=== PATIENT | female | born 1985 | race Caucasian/White ===

== ENCOUNTER 2023-04-07 12:08 | Emergency (ER) | payer BC, SELFPAY ==
[2023-04-07 12:20] VITALS: BP 101/72; PULSE 79; RESP 16; TEMP 35.8; O2SAT 98
--- NOTE | 2023-04-07 12:58 | ED.GENADULT ---
HPI - General Adult General Chief complaint: Upper Respiratory Infection Stated complaint: Exposure to Flu, No Symptoms Time Seen by Provider: 04/07/23 12:58 Source: patient, RN notes reviewed and old records reviewed Mode of arrival: ambulatory Limitations: no limitations History of Present Illness HPI narrative: 38-year-old female presents to the [facility] with complaints of exposure to influenza. Exposure was on the last several days to influenza A. Patient states her and 2 of her children tested positive. Patient is wanting Tamiflu to prevent her from getting the flu. Explained to patient that Tamiflu just reduces symptoms of Tamiflu by a couple of hours. It does not prevent you from getting the flu. Patient currently Patient denies any symptoms. No sore throat, fevers, chest pain, abdominal pain. No sinus congestion. Denies any body aches Related Data Allergies Allergy/AdvReac Type Severity Reaction Status Date / Time amoxicillin [From Amoxil] Allergy Itching Verified 04/07/23 12:22 Review of Systems Review of Systems: All systems reviewed & are unremarkable except as noted in HPI and below Constitutional: Constitutional: Reports no additional constitutional complaints Eyes: Eyes: Reports no additional eye complaints ENT: Reports system reviewed and no additional complaints, except as documented Cardiovascular: Cardiovascular: Reports no additional cardiovascular complaints, Denies chest pain and Denies dyspnea Respiratory: Respiratory: Reports no additional respiratory complaints, Denies chest congestion, Denies cough and Denies dyspnea Gastrointestinal: Gastrointestinal: Reports no additional gastrointestinal complaints, Denies abdominal pain, Denies nausea and Denies vomiting Musculoskeletal: Musculoskeletal: Reports no additional musculoskeletal complaints Integumentary/Breasts: Skin/Breast: Reports system reviewed and no additional complaints, except as docu Neurologic: Reports system reviewed and no additional complaints, except as documented Psychiatric: Psychiatric: Reports no additional psychiatric complaints Allergic/Immunologic: Allergic/Immunologic: Reports no additional allergic/immunologic complaints PMFSH Comments At the time of my signature, I reviewed and agree with the nursing past medical, surgical, social, and family history. There is no relevant family history pertinent to the patient complaint. Exam Const: General: cooperative, healthy appearing, comfortable, no acute distress, well developed, alert and well nourished Nutritional Appearance: well nourished Orientation/consciousness: patient oriented x3 Limitations: no limitations HENMT: Head: normal to inspection Ears: hearing grossly normal bilaterally, external ears normal, TM's normal bilaterally, EAC's normal, mastoids normal and no periauricular adenopathy Face/Nose/Sinus: Normal external nose present, Normal nares present, Normal nasal mucous membranes and turbinates present, normal facial exam and face symmetric Face and sinus: normal facial exam, sinuses nontender and face symmetric Mouth: Yes Normal oral and palatal mucosa present, Yes lip normal and Yes moist mucous membranes Throat: posterior oropharynx normal and uvula midline Eyes: General: appearance normal, both eyes and all related structures Alignment and Position: alignment normal Periorbital: periorbital findings normal Pupils: Equal, round and reactive pupils present EOM: EOMs intact bilaterally Neck: Neck: normal visual inspection, full ROM, no lymphadenopathy and no meningeal signs Chest: Chest palpation & inspection: normal inspection of the chest Resp: Effort & Inspection: normal respiratory effort and able to speak in complete sentences Auscultation: clear to auscultation bilaterally, no crackles, no rales, no rhonchi and no wheezes Cardio: Rate: regular rate Rhythm: regular rhythm Back/Spine/Pelvis: Cervical Spine: cervical ROM
== END 2023-04-07 13:16 | disposition home or self-care (01) ==
PROVIDERS: Emergency Provider Nurse Practitioner
DX: Z20.828 Contact with and (suspected) exposure to other viral communicable diseases (principal)
CPT/HCPCS: 87804; 99213; G0463

== ENCOUNTER 2023-09-13 08:09 | Emergency (ER) | payer BC, SELFPAY ==
[2023-09-13 08:15] VITALS: BP 102/85; PULSE 82; RESP 16; TEMP 36.5; O2SAT 99
--- NOTE | 2023-09-13 08:32 | ED.EAR ---
HPI - Ear Problem General Chief complaint: Ear Stated complaint: EARACHE Time Seen by Provider: 09/13/23 08:24 Source: patient Mode of arrival: ambulatory Limitations: no limitations History of Present Illness HPI Narrative: Faviola is a 38-year-old female patient presenting to the clinic today with complaints a left earache. She reports that she is having decreased hearing in the left ear. This has been going on for 5 days. Has had runny nose and congestion as well. Denies any fever, chills, or body aches. Related Data Allergies Allergy/AdvReac Type Severity Reaction Status Date / Time amoxicillin [From Amoxil] Allergy Itching Verified 09/13/23 08:31 Review of Systems Review of Systems: Pertinent positives per HPI. Patient denies any fever, chills, rash, headache, visual changes, dizziness, sore throat, shortness of breath, chest pain, palpitations, nausea, vomiting, diarrhea, constipation, abdominal pain, or any urinary issues. PMFSH Comments At the time of my signature, I reviewed and agree with the nursing past medical, surgical, social, and family history. There is no relevant family history pertinent to the patient complaint. Exam Narrative: General: Well-developed, well nourished, in no apparent distress Head: Normocephalic, atraumatic Eyes: Pupils equally round and reactive to light bilaterally, EOM intact, sclera and conjunctive clear, no discharge, lids normal Ears: TMs intact, mild bulging, fluid noted behind the TMs, ear canals clear, no drainage, grossly hearing normal. Nose: Nares patent, clear discharge, no inflammation, no sinus tenderness. Mouth: Oropharynx without lesions or masses, good dentition, MMM. Neck: Supple, trachea midline, no enlargement of anterior or posterior cervical nodes, no thyroid masses or goiter palpable. Cardio: Regular rate and rhythm, s1 and s2 normal, no murmur appreciated. Resp: Clear to auscultation bilaterally anteriorly and posteriorly, no rhonchi, rales, wheezing or rubs Course Course Emergency Course: Portions of this record may have been created with voice recognition software. Level of Care: Express Care Visit Vital Signs Vital signs: Vital Signs Temperature 36.5 C 09/13/23 08:15 Pulse Rate 82 09/13/23 08:15 Respiratory Rate 16 09/13/23 08:15 Blood Pressure 102/85 09/13/23 08:15 Pulse Oximetry 99 09/13/23 08:15 Temperature 36.5 C 09/13/23 08:15 Pulse Rate 82 09/13/23 08:15 Respiratory Rate 16 09/13/23 08:15 Blood Pressure 102/85 09/13/23 08:15 Pulse Oximetry 99 09/13/23 08:15 Oxygen Delivery Room Air 09/13/23 08:22 Vital signs reviewed Medical Decision Making MDM Narrative Medical decision making narrative: At the time of visit patient is resting comfortably on the exam table. Patient appears to be nontoxic. Plan: I suspect patient has bilateral serous otitis. Prescription for prednisone was sent to the pharmacy. Patient is so risk and benefits of the prednisone medication was reviewed with the patient she voiced understanding. Supportive measures were discussed with the patient and they voiced understanding discharge instructions and agrees to treatment plan. Return precautions reviewed Differential Diagnosis Differential Diagnosis: Otitis media, otitis externa, eustachian tube dysfunction, cerumen impaction, upper respiratory infection, serous otitis Vital Signs Vital Signs: Vital Signs Temperature 36.5 C 09/13/23 08:15 Pulse Rate 82 09/13/23 08:15 Respiratory Rate 16 09/13/23 08:15 Blood Pressure 102/85 09/13/23 08:15 Pulse Oximetry 99 09/13/23 08:15 Temperature 36.5 C 09/13/23 08:15 Pulse Rate 82 09/13/23 08:15 Respiratory Rate 16 09/13/23 08:15 Blood Pressure 102/85 09/13/23 08:15 Pulse Oximetry 99 09/13/23 08:15 Oxygen Delivery Room Air 09/13/23 08:22 Discharge Plan Discharge Clinical Impression: Acute serous otitis
== END 2023-09-13 08:37 | disposition home or self-care (01) ==
PROVIDERS: Emergency Provider Nurse Practitioner Family; PCP Emergency Medicine
DX: H65.03 Acute serous otitis media, bilateral (principal)
CPT/HCPCS: 99213; G0463

== ENCOUNTER 2024-03-28 17:35 | Emergency (ER) | payer BC, SELFPAY ==
[2024-03-28 17:46] VITALS: BP 102/66; PULSE 80; RESP 16; TEMP 36.6; O2SAT 99
--- NOTE | 2024-03-28 17:46 | ED.EAR ---
HPI - Ear Problem General Chief complaint: Ear Stated complaint: Headache/Ear Pain Source: patient Mode of arrival: ambulatory Limitations: no limitations History of Present Illness HPI Narrative: 39-year-old female presented for complaint headache for 3 days. Endorses mild nausea, fatigue, ear pain and nasal drainage at the onset. Denies shortness of breath, wheezing vomiting, diarrhea, fevers or chills. Patient tested negative for covid and negative test at home. Recent air travel, returned today from [facility]. Says Tylenol and ibuprofen are not helping. MD Complaint: ear pain Related Data Allergies Allergy/AdvReac Type Severity Reaction Status Date / Time amoxicillin [From Amoxil] Allergy Itching Verified 12/22/23 13:11 clavulanic acid AdvReac Unknown Verified 03/28/24 17:47 [From Augmentin] Review of Systems Review of Systems: CONSTITUTIONAL: Denies malaise, chills, or fever. EYES: Denies visual changes, redness, or discharge. ENT: Denies rhinorrhea, congestion, sinus pain, and sore throat. Reports ear pain CARDIOVASCULAR: Denies chest pain, palpitations, or edema. RESPIRATORY: Denies cough or dyspnea. GASTROINTESTINAL: Denies abdominal pain, nausea, vomiting, diarrhea SKIN: Denies rash or itching. MUSCULOSKELETAL: Denies myalgia. NEUROLOGIC: reports headache. All systems reviewed & are unremarkable except as noted in HPI and below PMFSH Family History Family History Father Hypertension Mother Breast cancer Grandparent Heart disease Breast cancer Social History Social History Smoking status: Never smoker Alcohol intake: current Drinks per week: 2 Alcohol use details: wine - 1-2 glasses on the weekend Substance use: never Do You Feel Safe in your Home?: Yes Lack of Transportation: No Lack of Food: Never True Current Housing: I Have Housing Concerned About Future Housing: No Difficulty Paying Gas/Electric Bills: No Difficulty Paying for Meds: No Currently Unemployed: No Education: Master's Degree or Higher Difficulty w/ Childcare or Family Care: No Living arrangements: with family Comments At time of signature, agree with nursing past medical, surgical, social and family history. There is no relevant family history pertinent to the presenting complaint Exam Narrative: GENERAL: Well-appearing EYES: PERRLA, conjunctivae clear ENT: Nares clear. Mucous membranes moist. Left TM pearly doe with dull light reflex; right normal ear no tragal tenderness. Oropharynx not erythematous without lesions. Tonsils not enlarged and without exudate, no drooling, no hoarseness, no trismus, uvula midline. NECK: Supple. No lymphadenopathy CHEST: Clear to auscultation, breath sounds equal. HEART: Regular rate and rhythm. No murmur heard. SKIN: Warm, dry, no rash. NEURO: Alert and oriented x3. PSYCH: Normal mood and affect Course Course Emergency Course: Patient is aware of diagnosis, understands and agrees to treatment plan. Anticipatory guidance given. Patient agrees to follow-up as directed and is aware of reasons to seek care at the emergency department. Portions of this record may have been created with voice recognition software Level of Care: Express Care Visit Vital Signs Vital signs: Reviewed Medical Decision Making MDM Narrative Medical decision making narrative: Discussed physical exam findings consistent with right otitis media Advised supportive measures and signs/symptoms to go to the ER. Patient is appropriate for outpatient treatment and follow-up. Differential Diagnosis Differential Diagnosis: Coronavirus, strep pharyngitis, allergic rhinitis, upper respiratory tract infection, sinusitis, rhinosinusitis, nasopharyngitis, viral pharyngitis, otitis media, otitis externa, eustachian tube dysfunction, foreign body, cerumen impaction.
[2024-03-28 17:47] VITALS: BP 102/66; PULSE 80; RESP 16; TEMP 36.6; O2SAT 99
== END 2024-03-28 18:04 | disposition home or self-care (01) ==
PROVIDERS: Emergency Provider Nurse Practitioner Family; PCP Family Medicine
DX: H66.91 Otitis media, unspecified, right ear (principal)
CPT/HCPCS: 99213; G0463

== ENCOUNTER 2024-08-21 08:48 | Outpatient (CLI) | payer BC, SELFPAY ==
--- NOTE | ~2024-08-21 | MM_ITS ---
EXAMINATION: MM screening bisi BI w devan HISTORY: Screening mammogram, family history of breast cancer in her mother. TECHNIQUE: Craniocaudal and mediolateral oblique 3-D tomosynthesis images were obtained and synthetic 2-D images were generated. CAD analysis was submitted and interpreted. COMPARISON: No prior mammogram is available for comparison at this institution. BREAST PARENCHYMAL COMPOSITION:Dense: The breasts are extremely dense, which lowers the sensitivity o f mammography. FINDINGS: Questionable low-density mass in the inner left breast. No suspicious abnormality in the ri ght breast. IMPRESSION: Questionable low-density left breast mass, as above. Spot compression views and possibly ultrasound a re recommended for further evaluation. BI-RADS Category 0: Incomplete: Needs additional imaging evaluation. Reviewed, dictated and finalized at location . IMPRESSION: Questionable low-density left breast mass, as above. Spot compression views and possibly ultrasound are recommended for further evaluation. BI-RADS Category 0: Incomplete: Needs additional imaging evaluation.
--- OUTSIDE RECORDS SUMMARY | 2024-08-21 09:11 | XMS_ITS | Referral Summary ---
Author Organization [facility] Address [address] [place] [address] Care Team Providers Care Driller Portable Name Role Phone Unknown, Notinfile Primary Care Provider Unavail able Allergies Active Allergy Reactions Criticality Noted Date Comments Amoxicillin-Pot Clavulanate Edema Medium 01/24/20 23 Medications ibuprofen (ADVIL,MOTRIN) 600 mg tablet Take 1 tablet (600 mg total) by mouth every 6 (six) hours as needed for pain (pain) for up to 30 doses 30 tablet 01/25/2023 Active Active Problems Problem Noted Date Diagnosed Date Family history of breast cancer 03/17/2023 Overview (03/17/2023): Breast cancer in mother at age 60 (negative genetic testing), maternal grandmother at 65, (negative genetic testing) and maternal aunt breast cancer at 62, (negative genetic testing) -patient aware that she is obviously high risk by family history. Increased screening with mammograms alternating with breast MRIs every 6 months discussed History of recurrent miscarriages 11/19/2019 Overview (03/17/2023): 10/2019 MISCARRIAGE 47XX+22 Resolved Problems Problem Noted Date Diagnosed Date Resolved Date 39 weeks gestation of 01/24/2023 03/17/2023 Social History Tobacco Use Types Packs/Day Years Used Date Smoking Tobacco: Never Passive Smoke Exposure: Never Smokeless Tobacco: Never Tobacco Cessation:Counseling Given: No AUDIT-C Answer Date Recorded Q1: How often do you have a drink containing alc ohol? Monthly or less 03/20/2023 Average Number of Drinks Not on file 023 Q3: How often do you have si x or more drinks on one occasion? Never 03/20/2023 Personal Safety Answer Date Recorded Have you ever been in or are you currently in a harmful physical or emotional relationship or is someone making you feel afraid or unsafe? 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 Gender Identity Not on file Sexual Orientation Not on file Last Filed Vital Signs Vital Sign Reading Time Taken Comments Blood Pressure 110/70 03/20/2023 5:02 PM CDT Pulse 80 01/25/2023 7:53 AM CDT Temperature 36.6 C (97.9 F) 01/25/2023 7:53 AM CDT Respiratory Rate 18 01/25/2023 7:53 AM CDT Oxygen Saturation 100% 01/25/2023 7:53 AM CDT Inhaled Oxygen Concentration - - Weight 73.9 kg (163 lb) 03/20/2023 5:02 PM CDT Height 167 cm (5' 5.75 ) 03/20/2023 5:02 PM CDT Body Mass Index 26.51 03/20/2023 5:02 PM CDT Plan of Treatment Not on file Insurance [employer] OOS [employer]ub[employer] ACCESS OOS [employer] ACCESS OOS Advance Directives For more information, please contact: [phone] * Full Code (Latest Code Status on File) Date Activated Date Inactivated Comments 01/24/2023 4:43 PM 01/25/2023 11:35 PM * Full Code Date Activated Date Inactivated Comments 01/24/2023 7:05 AM 01/24/2023 4:43 PM Full CPR in case of cardiopulmonary arrest Care Teams Driller Portable Relationship Specialty Start Date End Date Unknown, Notinfile PCP - General 01/16/23
--- OUTSIDE RECORDS SUMMARY | 2024-08-21 09:11 | XMS_ITS | Clinical Summary ---
Author Organization [facility] Address [address] [place], [place] [id number] Phone [email or web address] Care Team Providers Care Electrotherapist Name Role Phone Unavailable Primary Care Provider Unavailabl e Immunizations Name Administration Dates Next Due Influenza, (Afluria Fluarix Flulaval Fluzone) quad, PF (CVX-[id number]) 04/01/2019 Social History Tobacco Use Types Packs/Day Years Used Date Smoking Tobacco: Never Assessed Intimate Partner Violence Answer Date R ecorded Insults You Not on file 09/22/2020 Threatens You Not on file 09/22/2020 Screams at You Not on file 09/22/2020 Physically Hurt Not on file 09/22/2020 Intimate Partner Violence Score Not on file 09/22/2020 Stress Answer Date Recorded Stress in your Life 0 07/22/2020 Dealing with Stress Not on file 07/22/2020 Comments Unknown Sex and Gender Information Value Date Recorded Sex Assigned at Not on file Legal Sex Female 3:52 PM CDT Gender Identity Not on file Sexual Orientation Not on file Plan of Treatment Health Maintenance Due Date Last Done Comments Tetanus (Tdap or Td) Immunization 1998 Cervical Cancer Screening 2003 Hepatitis B Immunization (1 of 3 - 19+ 3-dose series) 2006 Tetanus Diphtheria and Pertu ssis Immunization (1 - Tdap) 2006 Covid-19 Immunization (1 - 2 024-25 season) 2024 Influenza Immunization (#1) 2024 04/01/2019 HIB Immunization Aged Out No longer e ligible based on patient's age to complete this topic HPV Immunization Aged Out No longer e ligible based on patient's age to complete this topic Hepatitis A Immunization Aged Out No longer eligible based on patient's age to complete this topic Pneumococcal: Ped (0 to 5 Yr s) and At-Risk Member (6 to 64 Yrs) Aged Out No longer e ligible based on patient's age to complete this topic Polio Immunization Aged Out No longer eligible based on patient's age to complete this topic Varicella Immunization Aged Out No lo nger eligible based on patient's age to complete this topic
--- OUTSIDE RECORDS SUMMARY | 2024-08-21 09:11 | XMS_ITS | Clinical Summary ---
Author Organization [facility] Address [address] [place] [address] Care Team Providers Care Axle Polisher Name Role Phone Unknown, Notinfile Primary Care [...] Date 39 weeks gestation of 01/24/2023 03/17/2023 Surgical History Surgery Date Site/Laterality Comments NO PAST SURGERIES Family History Medical History Relation Name Comments Breast cancer Maternal Grandmother Negati ve genetic test Breast cancer Mother Negative aleisha ic test Breast cancer Mother's Sister Negative ge netic test Relation Name Status Comments Maternal Grandmother Mother Mother's Sister Alive Other 1 Other 2 Social History Tobacco Use Types Packs/Day Years [...] on file Legal 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 Gender Identity Not on file Sexual Orientation Not on file Obstetrics History Para Term AB IAB SAB Ectopic Multiple Livin g Live Births 5 3 3 2 2 0 3 3 Date Outcome GA Total Labor Labor/2nd/3rd Weight Sex Type Anes PTL Monica A1 A5 Name Clin 2018 SAB 6w0 d SAB 2019 Term 40w 0d 3.175 kg (7 lb) M Vagina l None N Livin g Complications:None 2019 SAB 11w 0d SAB 2020 Term F Vagina l Epidur al N Livin g Complications:None 2022 Term 39w 5d 0h 11m 0h 06m/0h 05m 3.425 kg (7 lb 8.8 oz) M Vagina l Epidur al N Livin g 8 9 POLO S,BOY [place] Yogesh Vallejo MD Complications:None Delivery Location:This Facil ity ([facility]) Comments # 1: 2018 40 weeks , , boy, [place], 7#11, epidural. # 2: 2020 39 weeks, , girl, Celine, 6#11, epidural. # 3: 2017 6 weeks, SAb. # 4: 2019 11 weeks, SAb, NO D+C 4.: 01/24/2023, 39 5/7 weeks, , boy, Nicolas, 7 lb 9 oz, epidural, DW at [facility] Last Filed Vital Signs Vital Sign Reading [...] 03/20/2023 5:02 PM CDT Plan of Treatment Health Maintenance Due Date Last Done Comments Cervical Cancer Screening 1987 Depression Screening 1987 Hepatitis C Screening 1987 Varicella Vaccines (1 of 2 - 13+ 2-dose series) 02/03/2000 Hepatitis B Screening 2005 Regular Well Visit/Exam 18-64 2005 Influenza Vaccine (#1) 2024 , 04/01/2019 DTaP/Tdap/Td Vaccine (2 - Td or Tdap) 07/16/2030 07/16/2020 HPV Vaccines Aged Out No longer eligi ble based on patient's age to complete this topic Pneumococcal vaccine <65 Aged Out No longer eligible based on patient's age to complete this topic Insurance [employer] OOS [employer] Advance Directives For more information, please contact: [phone] * Full Code (Latest Code Status on File) Date Activated Date Inactivated Comments 01/24/2023 4:43 PM 01/25/2023 11:35 PM * Full Code Date Activated Date Inactivated Comments 01/24/2023 7:05 AM 01/24/2023 4:43 PM Full CPR in case of cardiopulmonary arrest Care Teams Axle Polisher Relationship Specialty Start Date End Date Unknown, Notinfile PCP - General 01/16/23
--- OUTSIDE RECORDS SUMMARY | 2024-08-21 09:11 | XMS_ITS | Encounter Summary ---
Author Organization [facility] Healthcare Address [address] [place] [address] Care Team Providers Care Block Cableman Name Role Phone Unknown, Janelle Primary Care Provider Unavail able Encounter Details Date Type Department Care Team (Late st Contact Info) Description 01/20/2023 Documentation [facility] [address] [place] [address] Social History Tobacco Use Types Packs/Day Years Used Date Smoking Tobacco: Never Assessed Personal Safety Answer Date Recorded Have you ever been in or are you currently in a harmful physical or emotional relationship or is someone making you feel afraid or unsafe? 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
--- OUTSIDE RECORDS SUMMARY | 2024-08-21 09:11 | XMS_ITS | Patient Health Record ---
Author Organization [facility] Address [address] [facility] [place] [address] Support Name Relationship Address Phone Faviola Guerin Guarantor Unknown [phone] Reason For Referral No Information Medications Medication SIG (Take, Route, Frequency, Duration) Notes Start Date End Date Status Vitamins Oral *Pick strength -form from [facility] for eRX* 03/10/2020 Active Problems Problem Type SNOMED Code ICD Code Onset Dates Problem Status W/U Status Risk Notes Problem RhD negative (finding) (049257403) Unspecified blood type, Rh negative (Z67.91) 01/02/20 20 Problem resolved confirmed was Closed. Problem Family history of malignant neoplasm of breast (898786851) Family history of malignant neoplasm of breast (Z80.3) 03/10/20 20 Problem resolved confirmed was Closed. Problem Family history: Congenital anomaly (307110926) Family history of other congenital malformations, deformations and chromosomal abnormalities (Z82.79) 03/10/20 20 Problem resolved confirmed was Closed. Plan Of Treatment No Information Insurance Providers Payer Name Payer Address Payer Phone Subscriber Number Group Number Insured Name Patient Relationship to Insured Coverage Start Date Coverage End Date [employer] [address] [place] [id number] Faviola Guerin Self - patient is the insured [id number]
== END 2024-08-21 08:49 | disposition home or self-care (01) ==
LOC: ANHIMG 08:49
PROVIDERS: PCP Family Medicine; Visit Provider Family Medicine
DX: Z12.31 Encounter for screening mammogram for malignant neoplasm of breast (principal); R92.8 Other abnormal and inconclusive findings on diagnostic imaging of breast
CPT/HCPCS: 77063; 77067

== ENCOUNTER 2024-08-27 11:33 | Outpatient (CLI) | payer BC, SELFPAY ==
--- NOTE | ~2024-08-27 | MMUS_ITS ---
EXAMINATION: MM diagnostic bisi LT w devan, US breast LT complete HISTORY: Follow-up left breast mass TECHNIQUE: Additional 3-D tomosynthesis images of the left breast were performed and synthetic 2-D im ages were generated. CAD analysis was submitted and interpreted. High resolution really complete left breast ultrasound was performed. COMPARISON: 08/21/2024 BREAST PARENCHYMAL COMPOSITION: Dense: The breasts are extremely dense, which lowers the sensitivity of mammography. FINDINGS: MAMMOGRAPHIC FINDINGS: There no suspicious masses, calcifications and architectural distortion are unremarkable. ULTRASOUND: Complete US of all 4 quadrants of the left breast/s and retroareolar region was reviewed. Normal hete rogeneous echotexture without focal solid or cystic mass. IMPRESSION: 1. No evidence for malignancy in the left breast. 2. Routine yearly screening mammogram and regular clinical breast examination are recommended. BI-RADS Category 1: Negative Reviewed, dictated and finalized at location B. IMPRESSION: 1. No evidence for malignancy in the left breast. 2. Routine yearly screening mammogram and regular clinical breast examination a re recommended. BI-RADS Category 1: Negative
--- OUTSIDE RECORDS SUMMARY | 2024-08-27 13:16 | XMS_ITS | Clinical Summary ---
Author Organization [facility] Address [address] [place], [place] [id number] Phone [email or web address] [email or web address] Care Team Providers Care Foreman Or Supervisor And Operator Name Role Phone Unavailable Primary Care Provider [...]
--- OUTSIDE RECORDS SUMMARY | 2024-08-27 13:16 | XMS_ITS | Clinical Summary ---
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 # 2: 2020 39 weeks, , girl, Celine, 6#11, epidural. # 3: 2017 6 weeks, SAb. # 4: 2019 11 weeks, SAb, NO D+C 4.: 01/24/2023, 39 5/7 weeks, , boy, Nicolas, 7 lb 9 oz, epidural, DW at [facility] Last Filed Vital Signs Vital Sign Reading [...] patient's age to complete this topic Insurance [employer] OOS Advance Directives For more information, please contact: [phone] * Full Code (Latest Code Status on File) Date Activated Date Inactivated Comments 01/24/2023 4:43 PM 01/25/2023 11:35 PM * Full Code Date Activated Date Inactivated Comments 01/24/2023 7:05 AM 01/24/2023 4:43 PM Full CPR in case of cardiopulmonary arrest Care Teams Technical Product Manager Relationship Specialty Start Date End Date Unknown, Notinfile PCP - General 01/16/23
--- OUTSIDE RECORDS SUMMARY | 2024-08-27 13:16 | XMS_ITS | Referral Summary ---
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 Gender Identity Not on file Sexual Orientation [...] Plan of Treatment Not on file Insurance [employer] OOS [employer] ACC[employer] OOS [employer]OS Advance Directives For more information, please contact: [phone] * Full Code (Latest Code Status on File) Date Activated Date Inactivated Comments 01/24/2023 4:43 PM 01/25/2023 11:35 PM * Full Code Date Activated Date Inactivated Comments 01/24/2023 7:05 AM 01/24/2023 4:43 PM Full CPR in case of cardiopulmonary arrest Care Teams Medical Or Surgical Instrument Maker Relationship Specialty Start Date End Date Unknown, Notinfile PCP - General 01/16/23
--- OUTSIDE RECORDS SUMMARY | 2024-08-27 13:16 | XMS_ITS | Encounter Summary ---
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
--- OUTSIDE RECORDS SUMMARY | 2024-08-27 13:16 | XMS_ITS | Patient Health Record ---
Author Organization [facility] Address [address] [place] [address] Support Name Relationship Address Phone Faviola Guerin Guarantor Unknown [phone] Reason For Referral No Information Medications Medication SIG (Take, Route, Frequency, Duration) Notes Start Date End Date Status Vitamins Oral *Pick strength -form from [facility] for eRX* 03/10/2020 Active Problems Problem Type SNOMED Code ICD Code Onset Dates Problem Status W/U Status Risk Notes Problem RhD negative (finding) (477540679) Unspecified blood type, Rh negative (Z67.91) 01/02/20 20 Problem resolved confirmed was Closed. Problem Family history of malignant neoplasm of breast (586569820) Family history of malignant neoplasm of breast (Z80.3) 03/10/20 20 Problem resolved confirmed was Closed. Problem Family history: Congenital anomaly (769277337) Family history of other congenital malformations, deformations and chromosomal abnormalities (Z82.79) 03/10/20 20 Problem resolved confirmed was Closed. Plan Of Treatment No Information Insurance Providers Payer Name Payer Address Payer Phone Subscriber Number Group Number Insured Name Patient Relationship to Insured Coverage Start Date Coverage End Date [employer] [address] [place] [id number] [phone] [id number] Faviola Guerin Self - patient is the insured 0
== END 2024-08-27 11:34 | disposition home or self-care (01) ==
LOC: ANHIMG 11:35
PROVIDERS: PCP Family Medicine; Visit Provider Nurse Practitioner
DX: R92.8 Other abnormal and inconclusive findings on diagnostic imaging of breast (principal)
CPT/HCPCS: 76641; 77061; 77065; G0279